=== PATIENT | female | born 1945 | race Caucasian/White ===

== ENCOUNTER 2018-09-25 14:35 | Outpatient (CLI) | payer MEDICARE, OTHER ==
[2018-09-25 18:13] LABS: BASOPHILS # (AUTO) 0.1 10^3/uL (0.0-0.1); BASOPHILS % (AUTO) 1.2 %; EOSINOPHILS # (AUTO) 0.1 10^3/uL (0.0-0.7); EOSINOPHILS % (AUTO) 2.3 %; HGB - HEMOGLOBIN 13.7 g/dL (12.0-16.0); LYMPHOCYTES # (AUTO) 1.7 10^3/uL (1.5-3.5); LYMPHOCYTES % (AUTO) 31.3 %; MEAN CORPUSCULAR HEMOGLOBIN 31.2 pg (27.0-31.0); MEAN CORPUSCULAR HGB CONC 32.8 g/dL (32.0-36.0); MEAN CORPUSCULAR VOLUME 95.3 fL (81.0-99.0); MEAN PLATELET VOLUME 9.8 fL (7.9-10.8); MONOCYTES # (AUTO) 0.6 10^3/uL (0.0-1.0); MONOCYTES % (AUTO) 11.2 %; PLT - PLATELET COUNT 223 10^3/uL (130-450); WHITE BLOOD COUNT 5.5 x10^3/uL (4.8-10.8)
== END 2018-09-25 14:36 | disposition home or self-care (01) ==
LOC: LAB.F 14:35
PROVIDERS: ATTEND Internal Medicine
DX: L53.8 Other specified erythematous conditions (principal); M06.4 Inflammatory polyarthropathy
CPT/HCPCS: 36415; 81599; 85025; 86360

== ENCOUNTER 2020-04-30 22:11 | Observation (INO) | payer MEDICARE, OTHER ==
--- NOTE | 2020-04-30 22:35 | ED Physician Documentation ---
PD HPI CHEST PAIN - Stated complaint Stated Complaint: RAPID HR - Chief complaint Chief Complaint: Cardiac - History obtained from History obtained from: Patient - History of Present Illness Timing - onset: How many hours ago (3), Today Timing - onset during: Rest (sitting down to eat dinner.) Timing - duration: Hours (3) Timing - details: Abrupt onset, Still present Quality: Pressure, Tightness. No: Sharp Location: Substernal Improved by: No: Rest Worsened by: Exertion (felt lightheaded with standing/walking) Associated symptoms: Shortness of air, Feeling faint / dizzy, General Weakness, Palpitations (felt heart rate going very fast). No: Nausea, Vomiting Similar symptoms before: No diagnosis (She has had similar symptoms perhaps 3-4 times in the past year lasting only 20 to 30 minutes and then would improve. She did not seek evaluation for these episodes. She is able to walk and exercise regularly without any exertional chest pain or dyspnea.) Review of Systems Constitutional: denies: Fever, Chills, Fatigue, Weight Loss Nose: denies: Rhinorrhea / runny nose, Congestion Throat: denies: Sore throat Cardiac: reports: Palpitations (as per HPI). denies: Pedal edema, Calf pain Respiratory: denies: Cough GI: denies: Abdominal Pain, Nausea, Vomiting, Diarrhea Skin: denies: Rash, Lesions Neurologic: reports: Generalized weakness. denies: Focal weakness, Numbness, Near syncope, Syncope, Altered mental status, Headache Endocrine: denies: Weight loss, Easy bruising / bleeding PD PAST MEDICAL HISTORY - Past Medical History Past Medical History: Yes Cardiovascular: Atrial flutter Respiratory: None - Past Surgical History Past Surgical History: No - Allergies Allergies/Adverse Reactions: Allergies Allergy/AdvReac Type Severity Reaction Status Date / Time Opioids - Morphine Analogues AdvReac Nausea Verified 04/30/20 22:26 Opioids-Meperidine and AdvReac Nausea Verified 04/30/20 22:26 Related [Opioids-Meperidine & Related] Opioids-Methadone and Related AdvReac Nausea Verified 04/30/20 22:26 [Opioids-Methadone & Related] - Social History Does the pt smoke?: No Smoking Status: Never smoker Does the pt drink ETOH?: No Does the pt have substance abuse?: No - Immunizations Immunizations are current?: Yes - POLST Patient has POLST: No PD ED PE NORMAL - Vitals Vital signs reviewed: Yes (rapid heart rate) - General General: Alert and oriented X 3, No acute distress, Well developed/nourished - HEENT HEENT: Moist mucous membranes, Pharynx benign - Neck Neck: Supple, no meningeal sign, No adenopathy - Cardiac Cardiac: No murmur. No: RRR (irregular and rate about 150) - Respiratory Respiratory: Clear bilaterally - Abdomen Abdomen: Soft, Non tender - Back Back: No CVA TTP - Derm Derm: Normal color, Warm and dry - Extremities Extremities: No tenderness to palpate, Normal ROM s pain, No edema, No calf tenderness / cord - Neuro Neuro: Alert and oriented X 3, No motor deficit, Normal speech Results - Vitals Vitals: Vital Signs - 24 hr 04/30/20 04/30/20 04/30/20 22:26 22:28 22:58 Temperature 36.8 C Heart Rate 148 H 138 H 140 H Respiratory 20 20 20 Rate Blood Pressure 170/90 H 170/90 H 165/107 H O2 Saturation 100 100 100 04/30/20 04/30/20 04/30/20 23:02 23:28 23:39 Temperature Heart Rate 102 H 85 95 Respiratory 18 18 18 Rate Blood Pressure 167/107 H 127/64 108/63 O2 Saturation 100 99 98 05/01/20 05/01/20 05/01/20 00:05 00:29 00:30 Temperature Heart Rate 85 131 H 120 H Respiratory 18 18 18 Rate Blood Pressure 118/61 118/61 131/79 H O2 Saturation 98 98 98 05/01/20 00:58 Temperature Heart Rate 96 Respiratory 18 Rate Blood Pressure 131/79 H O2 Saturation 98 Oxygen O2 Source Room air - EKG (time done) 22:23 Rate: Rate (enter#) (155) Rhythm: Atrial fibrillation [address]: Normal QRS: Normal Ischemia: ST depression (mild laterally; consider rate related ischemia). No: ST elevation c/w ischemia, T wave inversion - Labs Labs: Laboratory Tests 04/30/20 04/30/20 04/30/20 22:35 22:35 22:35 WBC 7.0 RBC 4.69 Hgb 14.3 Hct 44.0 MCV 93.8 MCH 30.5 MCHC 32.5 RDW 13.2 Plt Count 217 MPV 10.4 Neut # (Auto) 3.4 Lymph # (Auto) 2.5 [place] # (Auto) 0.8 Eos # (Auto) 0.2 Baso # (Auto) 0.1 Absolute Nucleated RBC 0.00 Nucleated RBC % 0.0 Sodium 139 Potassium 3.3 L Chloride 104 Carbon Dioxide 25 Anion Gap 10.0 BUN 18 Creatinine 0.7 Estimated GFR (MDRD) 81 L Glucose 132 H Calcium 9.7 Magnesium 2.2 Total Bilirubin 0.5 AST 28 ALT 26 Alkaline Phosphatase 65 B-Natriuretic Peptide 84 Total Protein 7.5 Albumin 4.5 Globulin 3.0 Albumin/Globulin Ratio 1.5 Lipase 41 TSH 04/30/20 22:35 WBC RBC Hgb Hct MCV MCH MCHC RDW Plt Count MPV Neut # (Auto) Lymph # (Auto) [place] # (Auto) Eos # (Auto) Baso # (Auto) Absolute Nucleated RBC Nucleated RBC % Sodium Potassium Chloride Carbon Dioxide Anion Gap BUN Creatinine Estimated GFR (MDRD) Glucose Calcium Magnesium Total Bilirubin AST ALT Alkaline Phosphatase B-Natriuretic Peptide Total Protein Albumin Globulin Albumin/Globulin Ratio Lipase TSH 1.93 - Rads (name of study) chest xray Radiology: Prelim report reviewed (no acute process), See rad report PD MEDICAL DECISION MAKING - ED course Complexity details: re-evaluated patient (Her rate improved down to 90-100 with diltiazem. However remained in fibrillation and started increasing back up to the 1 10-1 20 range. Repeat dose of diltiazem was given. I talked with the hospitalist who will see the patient in the ER.), considered differential (New diagnosis of new onset atrial fibrillation with fast heart rate. Will check electrolytes and thyroid and kidney function. We will approach with rate control initially.), d/w patient Departure - Departure Disposition: ED Place in Observation Clinical Impression: Atrial fibrillation with rapid ventricular response Condition: Stable Record reviewed to determine appropriate education?: Yes
[2020-04-30] MEDS ORDERED: DILTIAZEM 50 MG/10 ML VIAL IVP STA (22:53)
[2020-04-30] MEDS ORDERED: SODIUM CHLORIDE 0.9% 1,000 ML IV STA (22:53)
[2020-04-30 23:00] LABS: BASOPHILS # (AUTO) 0.1 10^3/uL (0.0-0.1); EOSINOPHILS # (AUTO) 0.2 10^3/uL (0.0-0.7); EOSINOPHILS % (AUTO) 2.7 %; HGB - HEMOGLOBIN 14.3 g/dL (12.0-16.0); LYMPHOCYTES # (AUTO) 2.5 10^3/uL (1.5-3.5); LYMPHOCYTES % (AUTO) 35.3 %; MEAN CORPUSCULAR HEMOGLOBIN 30.5 pg (27.0-31.0); MEAN CORPUSCULAR HGB CONC 32.5 g/dL (32.0-36.0); MEAN CORPUSCULAR VOLUME 93.8 fL (81.0-99.0); MEAN PLATELET VOLUME 10.4 fL (7.9-10.8); MONOCYTES # (AUTO) 0.8 10^3/uL (0.0-1.0); MONOCYTES % (AUTO) 11.4 %; NEUTROPHILS # (AUTO) 3.4 10^3/uL (1.5-6.6); NEUTROPHILS % (AUTO) 49.3 %; PLT - PLATELET COUNT 217 10^3/uL (130-450); RED BLOOD COUNT 4.69 10^6/uL (4.20-5.40); RED CELL DISTRIBUTION WIDTH 13.2 % (12.0-15.0)
[2020-04-30 23:11] LABS: ALBUMIN 4.5 g/dL (3.2-5.5); ALBUMIN/GLOBULIN RATIO 1.5 (1.0-2.2); BILIRUBIN,TOTAL 0.5 mg/dL (0.2-1.0); CALCIUM 9.7 mg/dL (8.5-10.3); CREATININE 0.7 mg/dL (0.4-1.0); MAGNESIUM 2.2 mg/dL (1.7-2.8); TOTAL PROTEIN 7.5 g/dL (6.7-8.2)
[2020-04-30] MEDS ORDERED: POTASSIUM CHLORIDE 10 MEQ CAPSULE PO STA (23:37)
[2020-04-30] MEDS ORDERED: POTASSIUM CHLOR 10 MEQ/100 ML 10 MEQ/100 ML BAG IV ONE (23:37)
[2020-05-01] MEDS ORDERED: DILTIAZEM 50 MG/10 ML VIAL IVP ONE (00:24)
[2020-05-01] MEDS ORDERED: ACETAMINOPHEN 325 MG TABLET PO PRN (01:03)
[2020-05-01] MEDS ORDERED: ONDANSETRON 4 MG/2 ML VIAL IVP PRN (01:03)
[2020-05-01] MEDS ORDERED: SODIUM CHLORIDE FLUSH 0.9% 10 ML SYRINGE IVP PRN (01:03)
--- NOTE | 2020-05-01 01:16 | HISTORY & PHYSICAL EXAMINATION ---
Chief Complaint - Chief Complaint Chief Complaint: Irregular heart rate History of Present Illness - Admitted From Admitted From:: Home - History Obtained From Records Reviewed: Yes History obtained from: Patient, Spouse, ER Physician, EMR - History of Present Illness HPI Comment/Other: This is a very pleasant 74-year-old female with no significant past medical history who presents today complaining of an irregular heart rate. She states her symptoms began today around 7 PM after she finished eating dinner while she was watching TV. She states she has had similar symptoms in the past which normally lasts 30 to 45 minutes. She normally takes a cold shower and performs vagal maneuvers and this resolves her irregular heart rate. Despite these interventions today, her symptoms persisted and so she sought medical attention. She reports she felt some upper abdominal pain during the episode associated with nausea but no vomiting. She felt like she needed to belch during this episode. She currently reports no chest pain and she denies any dyspnea. Reports no fevers, chills, recent sick contacts. She believes she has been told she has atrial fibrillation in the past but she currently is not take any medications. She reports no prior history of heart disease or heart failure. She currently takes no medications. She had been offered a beta-alba in the past but she did not want to take this due to the potential side effects. In the emergency department, she was found to be in atrial fibrillation with heart rates in the 140s. He was given diltiazem 15 mg IV once with improvement in her heart rates in the 100s to 110s. She then became tachycardic again with heart rate in the 130s and she was given another 10 mg of IV diltiazem. Her labs are remarkable to for potassium of 3.3. Chest x-ray is unremarkable. EKG showed atrial fibrillation with heart rates in the 140s and diffuse ST depressions likely related to the heart rate. Given these findings, medicine was consulted for admission. I did discuss goals of care with the patient and she would like to be a full code. 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 Her 2 brothers and mother both have diabetes. Living arrangement: At home Living Situation: With spouse/s.o. Social History Notes: She lives at home with her , Jerry. 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 She smoked in her teens but has not smoked since then. She denies any alcohol use. - POLST Patient has POLST: No Meds/Allgy - Allergies Allergies/Adverse Reactions: Allergies Allergy/AdvReac Type Severity Reaction Status Date / Time Opioids - Morphine Analogues AdvReac Nausea Verified 04/30/20 22:26 Opioids-Meperidine and AdvReac Nausea Verified 04/30/20 22:26 Related [Opioids-Meperidine & Related] Opioids-Methadone and Related AdvReac Nausea Verified 04/30/20 22:26 [Opioids-Methadone & Related] Review of Systems - Constitutional Constitutional: denies: Fatigue, Fever, Chills, Weakness, Poor appetite - Eyes Eyes: denies: Blurred vision - Ears, Nose & Throat Ears, Nose & Throat: denies: Nasal discharge, Postnasal drainage, Sore throat - Cardiovascular Cariovascular: reports: Irregular heart rate, Palpitations. denies: Chest pain, Edema, Lightheadedness, Exertional dyspnea, Decr. exercise tolerance - Respiratory Respiratory: denies: Cough, SOB at rest, SOB with exertion - Gastrointestinal Gastrointestinal: reports: Nausea, Reflux/heartburn. denies: Abdominal pain, Constipation, Diarrhea, Vomiting - Genitourinary Genitourinary: denies: Dysuria, Frequency, Urgency, Hematuria - Musculoskeletal Musculoskeletal: denies: Muscle pain - Integumentary Integumentary: denies: Rash - Neurological Neurological: denies: General weakness, Focal weakness, Headache, Dizziness, Numbness - Psychiatric Psychiatric: reports: Anxiety - Hematologic/Lymphatic Hematologic/Lymphatic: reports: Bruising - All Other Systems All Other Systems: reports: Reviewed and negative Prior Level of Functionality: She is independent with her ADLs. Exam - Vital Signs Reviewed Vital Signs: Yes Vital Signs: Vital Signs x48h Temp Pulse Resp BP Pulse Ox 05/01/20 00:58 96 18 131/79 H 98 05/01/20 00:30 120 H 18 131/79 H 98 05/01/20 00:29 131 H 18 118/61 98 05/01/20 00:05 85 18 118/61 98 04/30/20 23:39 95 18 108/63 98 04/30/20 23:28 85 18 127/64 99 04/30/20 23:02 102 H 18 167/107 H 100 04/30/20 22:58 140 H 20 165/107 H 100 04/30/20 22:28 138 H 20 170/90 H 100 04/30/20 22:26 36.8 C 148 H 20 170/90 H 100 - Physical Exam General Appearance: positive: Alert Eyes Bilateral: positive: Normal inspection, Conjunctivae nml ENT: positive: ENT inspection nml Neck: positive: Nml inspection Respiratory: positive: No respiratory distress. negative: Wheezes, Rales Cardiovascular: positive: No murmur, Irregularly irregular, Tachycardia. negative: Bradycardia, Systolic murmur, Diastolic murmur Abdomen: positive: Non-tender, Nml bowel sounds, No distention. negative: Tenderness, Guarding, Rebound Skin: positive: No rash, Warm, Dry Extremities: positive: Full ROM, No pedal edema. negative: Calf tenderness, Dominga's sign/cords Neurologic/Psychiatric: positive: Oriented x3, Motor nml. negative: Disoriented to person, Disoriented to place, Disoriented to time Conclusion/Plan - Problem List (1) Atrial fibrillation with rapid ventricular response Conclusion/Plan: Suspect this is the likely cause of her ongoing palpitations over the past few years. Her heart rate has now improved to the low 100s after 2 pushes of diltiazem IV. She has fluctuated up to the 130s despite this and so we will observe her overnight. TSH is within normal limits. Chest x-ray is unremarkable. We will start her on oral Cardizem 30 mg every 6 hours. We will use diltiazem IV as needed. Monitor on telemetry. Check echocardiogram. Trend troponin. We discussed initiating anti-coagulation given her [id number] score is 3. I informed her that the daily risk of stroke is low but the concern with atrial fibrillation is the long-term risk of stroke. She would like to hold off on initiating Eliquis at this time until she does more research. She would like a prescription for when she is discharged as she may start taking it once she completes her research. (2) Hypokalemia Conclusion/Plan: Will replace orally. - Lab Results Lab results reviewed: Yes Fish Bones: 04/30/20 22:35 04/30/20 22:35 - Diagnostic Imaging Results Diagnostic Imaging Results: positive: Final report reviewed - EKG Results EKG Interpreted Independently: Yes EKG Comparison: Changed from prior EKG EKG Findings: EKG shows atrial fibrillation with a heart rate in the 140s. Diffuse ST depres sions likely related to her tachycardia. This is changed compared to prior EKG which was a sinus rhythm. Core Measures - Anticipated LOS I expect patient to be DC'd or transferred within 96 hours.: Yes - Issues Hospital Issues and Management Plan: 74-year-old female presents with atrial fibrillation. She remains tachycardic in the ER and so we will observe her overnight. Check echocardiogram and start her on oral Cardizem and continue with IV rate control as needed. - DVT/VTE - Prophylaxis VTE/DVT Device ordered at admit?: Yes VTE/DVT Prophylaxis med ordered at admit?: Yes
[2020-05-01] MEDS ORDERED: diltiaZEM 30 MG TABLET PO SCH ×2 (02:00→08:00)
[2020-05-01 05:48] LABS: BASOPHILS # (AUTO) 0.1 10^3/uL (0.0-0.1); BASOPHILS % (AUTO) 1.2 %; EOSINOPHILS # (AUTO) 0.1 10^3/uL (0.0-0.7); EOSINOPHILS % (AUTO) 2.3 %; HGB - HEMOGLOBIN 12.3 g/dL (12.0-16.0); LYMPHOCYTES # (AUTO) 1.4 10^3/uL (1.5-3.5); LYMPHOCYTES % (AUTO) 32.8 %; MEAN CORPUSCULAR HEMOGLOBIN 30.1 pg (27.0-31.0); MEAN CORPUSCULAR VOLUME 93.9 fL (81.0-99.0); MEAN PLATELET VOLUME 10.3 fL (7.9-10.8); MONOCYTES # (AUTO) 0.6 10^3/uL (0.0-1.0); MONOCYTES % (AUTO) 13.4 %; NEUTROPHILS # (AUTO) 2.2 10^3/uL (1.5-6.6); NEUTROPHILS % (AUTO) 50.1 %; PLT - PLATELET COUNT 188 10^3/uL (130-450); RED BLOOD COUNT 4.09 10^6/uL (4.20-5.40); RED CELL DISTRIBUTION WIDTH 13.2 % (12.0-15.0); WHITE BLOOD COUNT 4.3 x10^3/uL (4.8-10.8)
[2020-05-01 06:03] LABS: CALCIUM 9.4 mg/dL (8.5-10.3); CREATININE 0.5 mg/dL (0.4-1.0); MAGNESIUM 2.3 mg/dL (1.7-2.8)
--- NOTE | 2020-05-01 08:09 | Discharge Plan ---
Discharge Plan Problem Reviewed?: Yes Disposition: Home, Self Care Condition: Stable Prescriptions: diltiaZEM CD [Cardizem Cd] 120 mg PO DAILY PRN #15 capsule PRN Reason: Per Physician Order Apixaban [Eliquis] 5 mg PO BID #60 tablet Diet: Cardiac Activity Restrictions: Activity as Tolerated Shower Restrictions: No Driving Restrictions: No Instruction Topics: Stroke Prevent Live W Atrial Fib Health Concerns: You were admitted with Atrial fibrillation that had a very rapid heart rate. You received IV medicines for this which slowed it and then converted Afib back to a normal heart rhythm. An Echo was done that showed normal left ventricular function. Your risk of stroke is higher because of having episodes of Afib, therefore taking a daily aspirin or the anticoagulant medication daily is recommended. You need a stress test, to evaluate for coronary blockages as being a possible cause of this abnormal heart rhythm and abnormal troponin labs, therefore you should have no strenuous activity until you are cleared after having a stress test. There are new prescriptions for you to take called Cardizem (for heart rate control), and Eliquis (the blood thinner), these have been sent to your [facility] pharmacy in [place]. You should have further management and discussion about your options for Afib t reatment with a [facility]. See your PCP soon to get referral to a [facility]. Your PCP can order the stress test, however. Resume any other medicines you took before this hospitalization. Plan of Treatment: As above. Care Goals: Improvement in symptoms and stabilization are the goals. Assessment: Patient understands and is agreeable with the plan. Additional Instructions or Follow Up instructions: If you have new or worsening symptoms, call your PCP or [facility] for advice, or come to the ER. No Smoking: If you smoke, Please STOP! Call for help. Follow-up with: Shaggy Galicia MD [Primary Care Provider] -
--- NOTE | 2020-05-01 08:48 | XRAY Report ---
PROCEDURE: Chest 1 View X-Ray INDICATIONS: rapid heart rate TECHNIQUE: One view of the chest was acquired. COMPARISON: Chest xray 07/02/16 FINDINGS: Surgical changes and devices: None. Lungs and pleura: No pleural effusions or pneumothorax. Lungs are clear. Mediastinum: Mediastinal contours appear normal. Heart size is normal. Bones and chest wall: No suspicious bony lesions. Overlying soft tissues appear unremarkable. IMPRESSION: 1. No acute pulmonary process. Reviewed by: Miley Cardenas MD on 05/01/2020 8:47 AM PDT Approved by: Miley Cardenas MD on 05/01/2020 8:47 AM PDT Station ID: [id number]
[2020-05-01] MEDS ORDERED: ENOXAPARIN 40 MG/0.4 ML SYRINGE SUBQ SCH (09:00)
[2020-05-01] MEDS ORDERED: SODIUM CHLORIDE FLUSH 0.9% 10 ML SYRINGE IVP SCH (09:00)
[2020-05-01 10:26] VITALS: BP 153/54
--- NOTE | 2020-05-01 12:18 | DISCHARGE SUMMARY ---
Discharge Summary Admit Date: 05/01/20 Discharge Date: 05/01/20 Discharging Provider: Dr Yolanda Lowe Primary Care Provider: Dr Shaggy Galicia Code Status: Attempt Resuscitation Condition at Discharge: Stable Discharge Disposition: 01 Home, Self Care - [facility] History of Present Illness: From the admission H&P of Dr Brenton Georgef: This is a very pleasant 74-year-old female with no significant past medical history who presents today complaining of an irregular heart rate. She states her symptoms began today around 7 PM after she finished eating dinner while she was watching TV. She states she has had similar symptoms in the past which normally lasts 30 to 45 minutes. She normally takes a cold shower and performs vagal maneuvers and this resolves her irregular heart rate. Despite these interventions today, her symptoms persisted and so she sought medical attention. She reports she felt some upper abdominal pain during the episode associated with nausea but no vomiting. She felt like she needed to belch during this episode. She currently reports no chest pain and she denies any dyspnea. Reports no fevers, chills, recent sick contacts. She believes she has been told she has atrial fibrillation in the past but she currently is not take any medications. She reports no prior history of heart disease or heart failure. She currently takes no medications. She had been offered a beta-alba in the past but she did not want to take this due to the potential side effects. In the emergency department, she was found to be in atrial fibrillation with heart rates in the 140s. He was given diltiazem 15 mg IV once with improvement in her heart rates in the 100s to 110s. She then became tachycardic again with heart rate in the 130s and she was given another 10 mg of IV diltiazem. Her labs are remarkable to for potassium of 3.3. Chest x-ray is unremarkable. EKG showed atrial fibrillation with heart rates in the 140s and diffuse ST depressions likely related to the heart rate. Given these findings, medicine was consulted for admission. I did discuss goals of care with the patient and she would like to be a full code. - HOSPITAL COURSE Hospital Course: 1) Paroxysmal Afib. She was kept on telemetry and started on Cardizem 30 mg p.o. every 6 hours. She converted to normal sinus rhythm at rates of 60-70. An EKG was done that confirmed this. An Echo was done that showed normal chamber sizes and normal LV and RV contractility at rest. TSH was normal. Troponins were not normal: 5>> 24>> 28. They may have been elevated from demand ischemia related to the tachycardia. She was told that she needs work-up for coronary artery disease (which could be the cause of A. fib), this should be done as an outpatient. She was advised to have no strenuous activity (like hiking) until cleared after the stress test. Her chads vasc score was calculated at 3, and she was advised to start anticoagulation, but she wanted to think about this. An Eliquis 5 mg twice daily prescription was sent to her pharmacy. At the minimum, she was advised to take 1 baby aspirin with food, daily, lifelong. She said she would discuss this with her PCP and with a referral to a new [employer], after researching her options more. She was also given a prescription for Cardizem CD 120 mg a day to take 1 tablet prn when she gets recurrence of her palpitations. 2) Hypokalemia. This was corrected with oral replacement. - ALLERGIES Allergies/Adverse Reactions: Allergies Allergy/AdvReac Type Severity Reaction Status Date / Time gluten AdvReac Rash Verified 05/01/20 02:40 lactase [From [employer]] AdvReac Rash Verified 05/01/20 02:43 Opioids - Morphine Analogues AdvReac Nausea Verified 04/30/20 22:26 Opioids-Meperidine and AdvReac Nausea Verified 04/30/20 22:26 Related [Opioids-Meperidine & Related] Opioids-Methadone and Related AdvReac Nausea Verified 04/30/20 22:26 [Opioids-Methadone & Related] Cane sugar AdvReac Rash Uncoded 05/01/20 02:44 - MEDICATIONS Home Medications: Ambulatory Orders Medication Instructions Recorded Confirmed Apixaban [Eliquis] 5 mg PO BID #60 tablet 05/01/20 diltiaZEM CD [Cardizem Cd] 120 mg PO DAILY PRN #15 capsule 05/01/20 - PHYSICAL EXAM AT DISCHARGE General Appearance: positive: No acute distress, Alert Eyes Bilateral: positive: Normal inspection, EOMI ENT: positive: ENT inspection nml, No signs of dehydration Neck: positive: Nml inspection, No JVD Respiratory: positive: No respiratory distress Cardiovascular: positive: Regular rate & rhythm, No murmur Abdomen: positive: Non-tender, No distention Skin: positive: Color nml Extremities: positive: Non-tender, No pedal edema Neurologic/Psychiatric: positive: Oriented x3, Other (Non-focal) - LABS Result Diagrams: 05/01/20 05:29 05/01/20 05:29 - DIAGNOSTIC IMAGING Diagnostic Imaging Results: Final report reviewed - FOLLOW UP Follow Up: See PCP soon, for further management and hospital follow-up. - TIME SPENT Time Spent in Discharge (Minutes): 45
== END 2020-05-01 12:30 | disposition home or self-care (01) ==
LOC: ED 22:11 → MS2 05-01 01:03
PROVIDERS: ADMIT Internal Medicine; ATTEND Internal Medicine
DX: I48.0 Paroxysmal atrial fibrillation (principal); E87.6 Hypokalemia; R79.89 Other specified abnormal findings of blood chemistry; Z87.891 Personal history of nicotine dependence
CPT/HCPCS: 36415; 71045; 80048; 80053; 83690; 83735; 83880; 84100; 84443; 84484; 85025; 93005; 93306; 96361; 96365; 96372; 96375; 96376; 99284; 99285; A9270; G0378; J1650

== ENCOUNTER 2020-10-31 21:41 | Emergency (ER) | payer MEDICARE, OTHER ==
--- NOTE | 2020-10-31 21:48 | ED Physician Documentation ---
PD HPI CHEST PAIN - Stated complaint Stated Complaint: IRREGULAR HR - History obtained from History obtained from: Patient - History of Present Illness Timing - onset: How many hours ago (2) Timing - onset during: Rest (watching TV, felt onset of fast heart rate. Took BP and pulse and HR was 150s. 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 when needed for an episode. She took it at home and waited an hour without any improvement. Came here for evaluation.) Quality: Pressure. No: Tightness, Aching Improved by: Other medication (PO Diltiazem). No: Rest Worsened by: No: Inspiration Associated symptoms: Palpitations. No: Shortness of air, Nausea, Feeling faint / dizzy Similar symptoms before: Diagnosis (atrial fib episode about 6 months ago. No other known episodes.) Recently seen: Not recently seen Review of Systems Constitutional: denies: Fever, Chills Nose: denies: Rhinorrhea / runny nose, Congestion Throat: denies: Sore throat Cardiac: reports: Palpitations. 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11.) Psych: None Musculoskeletal: Osteoarthritis, Osteoporosis Derm: None - Past Surgical History Past Surgical History: No General: Colonoscopy HEENT: Cataracts, Tonsil/Adenoidectomy - Present Medications Home Medications: Ambulatory Orders Medication Instructions Recorded Confirmed diltiaZEM CD [Cardizem Cd] 120 mg PO DAILY PRN #15 capsule 05/01/20 Aspirin [Aspirin EC] 81 mg PO DAILY 10/31/20 10/31/20 Rivaroxaban [Xarelto] 15 mg PO DAILY 10/31/20 10/31/20 Potassium Chloride 10 meq PO DAILY #15 tablet.er 11/01/20 - Allergies Allergies/Adverse Reactions: Allergies Allergy/AdvReac Type Severity Reaction Status Date / Time gluten AdvReac Rash Verified 10/31/20 21:56 lactase [From Dairy Aid] AdvReac Rash Verified 10/31/20 21:56 Opioids - Morphine Analogues AdvReac Nausea Verified 10/31/20 21:56 Opioids-Meperidine and AdvReac Nausea Verified 10/31/20 21:56 Related [Opioids-Meperidine & Related] Opioids-Methadone and Related AdvReac Nausea Verified 10/31/20 21:56 [Opioids-Methadone & Related] Cane sugar AdvReac Rash Uncoded 10/31/20 21:56 - Social History Does the pt smoke?: No Smoking Status: Never smoker Does the pt drink ETOH?: No Does the pt have substance abuse?: No - Immunizations Immunizations are current?: Yes - POLST Patient has POLST: No PD ED PE NORMAL - Vitals Vital signs reviewed: Yes - General General: Alert and oriented X 3, Well developed/nourished - HEENT HEENT: Pharynx benign - Neck Neck: Supple, no meningeal sign, No adenopathy - Cardiac Cardiac: No murmur. No: RRR (irregular and fast rate about 140) - Respiratory Respiratory: Clear bilaterally - Abdomen Abdomen: Soft, Non tender - Derm Derm: Normal color, Warm and dry - Extremities Extremities: No deformity, No tenderness to palpate, No edema, No calf tenderness / cord - Neuro Neuro: Alert and oriented X 3, No motor deficit, Normal speech Results - Vitals Vitals: Vital Signs - 24 hr 10/31/20 10/31/20 10/31/20 21:45 21:57 22:23 Temperature 36.4 C L 36.4 C L 36.4 C L Heart Rate 68 128 H 123 H Respiratory 20 20 19 Rate Blood Pressure 149/97 H 149/97 H 124/85 H O2 Saturation 99 99 100 10/31/20 10/31/20 10/31/20 22:28 22:37 22:39 Temperature 36.4 C L 36.4 C L 36.4 C L Heart Rate 103 H 109 H 96 Respiratory 15 18 18 Rate Blood Pressure 104/93 H 125/86 H 115/88 H O2 Saturation 99 98 99 10/31/20 10/31/20 10/31/20 22:50 23:05 23:11 Temperature 36.4 C L 36.4 C L 36.4 C L Heart Rate 95 110 H 101 H Respiratory 18 16 16 Rate Blood Pressure 107/70 110/72 97/56 L O2 Saturation 100 100 98 10/31/20 10/31/20 10/31/20 23:15 23:20 23:30 Temperature 36.4 C L 36.5 C 36.5 C Heart Rate 93 90 89 Respiratory 16 16 16 Rate Blood Pressure 109/53 L 111/54 L 122/55 L O2 Saturation 100 98 100 10/31/20 10/31/20 11/01/20 23:42 23:54 00:35 Temperature 36.5 C 36.6 C 36.5 C Heart Rate 95 83 102 H Respiratory 16 18 18 Rate Blood Pressure 110/53 L 107/53 L 135/75 H O2 Saturation 100 98 99 11/01/20 11/01/20 11/01/20 00:45 00:48 00:51 Temperature Heart Rate 108 H 82 80 Respiratory 18 19 18 Rate Blood Pressure 122/81 H 111/61 108/56 L O2 Saturation 110 H 99 99 11/01/20 11/01/20 11/01/20 00:54 00:57 00:59 Temperature 36.5 C 36.5 C Heart Rate 74 82 120 H Respiratory 18 18 20 Rate Blood Pressure 99/58 L 109/58 L O2 Saturation 100 100 11/01/20 11/01/20 01:09 01:36 Temperature 36.5 C 36.5 C Heart Rate 74 78 Respiratory 18 18 Rate Blood Pressure 103/61 112/60 O2 Saturation 100 100 Oxygen O2 Source Room air - EKG (time done) 21:52 Rate: Rate (enter#) (157) Rhythm: Atrial fibrillation [place]: Normal QRS: Normal Ischemia: Normal ST segments, ST depression (mild diffusely c/w rate related ischemia). No: ST elevation c/w ischemia 01:06 Rhythm: NSR [place]: Normal Intervals: Normal [place] QRS: Normal Ischemia: Normal ST segments. No: ST elevation c/w ischemia, ST depression - Labs Labs: Laboratory Tests 10/31/20 10/31/20 10/31/20 22:00 22:00 22:00 WBC 6.2 RBC 4.66 Hgb 14.6 Hct 44.4 MCV 95.3 MCH 31.3 H MCHC 32.9 RDW 13.4 Plt Count 221 MPV 10.2 Neut # (Auto) 3.2 Lymph # (Auto) 2.1 [place] # (Auto) 0.6 Eos # (Auto) 0.1 Baso # (Auto) 0.1 Absolute Nucleated RBC 0.00 Nucleated RBC % 0.0 Sodium 139 Potassium 3.2 L Chloride 103 Carbon Dioxide 25 Anion Gap 11.0 BUN 19 Creatinine 0.6 Estimated GFR (MDRD) 97 Glucose 131 H Calcium 9.8 Magnesium 2.4 Total Bilirubin 0.6 AST 26 ALT 23 Alkaline Phosphatase 66 B-Natriuretic Peptide 90 Total Protein 7.8 Albumin 4.5 Globulin 3.3 Albumin/Globulin Ratio 1.4 Procedures - Procedural sedation Sedation prep: Informed consent, Time out completed, Last meal (several hours ago), PE performed, ASA 2 - mild disease Sedation medications: propofol Patient status during sedation: Responds to tactile, Recovered uneventfully. 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 Still remains in fibrillation. Heart rate was starting to increase again a little bit up to 90-100. We discussed rhythm control with either medications like procainamide or attempting cardioversion. Discussed pros and cons of each), considered differential (She is having atrial fibrillation with a fast heart rate. Prior episode was 6 months ago. Has not felt any episodes in the interim.), d/w patient, d/w family () ED course: She and her opted for cardioversion and this was done successfully with good recovery from sedation. She is in sinus rhythm and feels well. Vitals remained stable. Departure - Departure Disposition: 01 Home, Self Care Clinical Impression: Paroxysmal atrial fibrillation with RVR, Hypokalemia Condition: Stable Record reviewed to determine appropriate education?: Yes Instructions: ED Afib, ED Cardioversion Electrical Follow-Up: Shaggy Galicia MD [Primary Care Provider] - Prescriptions: Potassium Chloride 10 meq PO DAILY #15 tablet.er Comments: Well-hydrated. Add a potassium supplement daily for the next couple of weeks. Continue your aspirin daily. Contact your outbound sales professional on Tuesday to see if any other change in plans regarding prophylactic treatment or just continuing with the "pill in the pocket" approach at this time. Discharge Date/Time: 11/01/20 01:36
[2020-10-31] MEDS ORDERED: diltiaZEM INJ 5 MG/ML VIAL IVP STA ×2 (22:11→22:44)
[2020-10-31 22:16] LABS: BASOPHILS # (AUTO) 0.1 10^3/uL (0.0-0.1); BASOPHILS % (AUTO) 1.1 %; EOSINOPHILS # (AUTO) 0.1 10^3/uL (0.0-0.7); EOSINOPHILS % (AUTO) 1.9 %; HGB - HEMOGLOBIN 14.6 g/dL (12.0-16.0); LYMPHOCYTES # (AUTO) 2.1 10^3/uL (1.5-3.5); LYMPHOCYTES % (AUTO) 34.2 %; MEAN CORPUSCULAR HEMOGLOBIN 31.3 pg (27.0-31.0); MEAN CORPUSCULAR HGB CONC 32.9 g/dL (32.0-36.0); MEAN CORPUSCULAR VOLUME 95.3 fL (81.0-99.0); MEAN PLATELET VOLUME 10.2 fL (7.9-10.8); MONOCYTES # (AUTO) 0.6 10^3/uL (0.0-1.0); MONOCYTES % (AUTO) 10.3 %; NEUTROPHILS # (AUTO) 3.2 10^3/uL (1.5-6.6); PLT - PLATELET COUNT 221 10^3/uL (130-450); RED BLOOD COUNT 4.66 10^6/uL (4.20-5.40); RED CELL DISTRIBUTION WIDTH 13.4 % (12.0-15.0); WHITE BLOOD COUNT 6.2 x10^3/uL (4.8-10.8)
[2020-10-31] MEDS ORDERED: SODIUM CHLORIDE 0.9% 1,000 ML IV STA (22:16)
[2020-10-31 22:29] LABS: ALBUMIN 4.5 g/dL (3.2-5.5); ALBUMIN/GLOBULIN RATIO 1.4 (1.0-2.2); BILIRUBIN,TOTAL 0.6 mg/dL (0.2-1.0); CALCIUM 9.8 mg/dL (8.5-10.3); CREATININE 0.6 mg/dL (0.4-1.0); MAGNESIUM 2.4 mg/dL (1.7-2.8); TOTAL PROTEIN 7.8 g/dL (6.7-8.2)
[2020-10-31] MEDS ORDERED: POTASSIUM CHLOR 10 MEQ/100 ML 10 MEQ/100 ML BAG IV ONE (22:34)
[2020-10-31] MEDS ORDERED: POTASSIUM CHLORIDE 20 MEQ TABLET PO STA (22:34)
[2020-11-01] MEDS ORDERED: PROPOFOL 200 MG/20 ML VIAL IVP STA (00:29)
[2020-11-01 01:37] VITALS: BP 112/60
== END 2020-11-01 01:36 | disposition home or self-care (01) ==
LOC: ED 21:41
DX: I48.0 Paroxysmal atrial fibrillation (principal); E87.6 Hypokalemia; Z79.82 Long term (current) use of aspirin
CPT/HCPCS: 36415; 80053; 83735; 83880; 85025; 92960; 93005; 96361; 96365; 96375; 96376; 99152; 99284; A9270; 94770

== ENCOUNTER 2021-05-15 10:17 | Outpatient (CLI) | payer MEDICARE, OTHER | END 2021-05-15 10:18 | disposition home or self-care (01) | LOC: LAB 10:17 | PROVIDERS: ATTEND Internal Medicine Cardiovascular Disease | DX: Z01.812 Encounter for preprocedural laboratory examination (principal); I48.0 Paroxysmal atrial fibrillation; Z20.822 Contact with and (suspected) exposure to COVID-19 ==

== ENCOUNTER 2022-03-24 13:53 | Emergency (ER) | payer MEDICARE, OTHER ==
[2022-03-24 15:24] LABS: BASOPHILS # (AUTO) 0.1 10^3/uL (0.0-0.1); BASOPHILS % (AUTO) 1.2 %; EOSINOPHILS # (AUTO) 0.1 10^3/uL (0.0-0.7); EOSINOPHILS % (AUTO) 1.3 %; HCT - HEMATOCRIT 40.5 % (37.0-47.0); HGB - HEMOGLOBIN 13.5 g/dL (12.0-16.0); LYMPHOCYTES # (AUTO) 1.6 10^3/uL (1.5-3.5); LYMPHOCYTES % (AUTO) 26.5 %; MEAN CORPUSCULAR HEMOGLOBIN 31.2 pg (27.0-31.0); MEAN CORPUSCULAR HGB CONC 33.3 g/dL (32.0-36.0); MEAN CORPUSCULAR VOLUME 93.5 fL (81.0-99.0); MEAN PLATELET VOLUME 9.7 fL (7.9-10.8); MONOCYTES # (AUTO) 0.5 10^3/uL (0.0-1.0); MONOCYTES % (AUTO) 8.8 %; NEUTROPHILS # (AUTO) 3.7 10^3/uL (1.5-6.6); PLT - PLATELET COUNT 215 10^3/uL (130-450); RED BLOOD COUNT 4.33 10^6/uL (4.20-5.40); RED CELL DISTRIBUTION WIDTH 13.1 % (12.0-15.0)
--- NOTE | 2022-03-24 15:28 | XRAY Report ---
PROCEDURE: Chest 1 View X-Ray INDICATIONS: Chest Pain TECHNIQUE: One view of the chest was acquired. COMPARISON: Chest x-ray 04/30/2020 FINDINGS: Surgical changes and devices: None. Lungs and pleura: No pleural effusions or pneumothorax. Lungs are clear. Mediastinum: Mediastinal contours appear normal. Heart size is enlarged. Bones and chest wall: No suspicious bony lesions. Overlying soft tissues appear unremarkable. IMPRESSION: No acute pulmonary process. Reviewed by: Miley Cardenas MD on 03/24/2022 3:27 PM PDT Approved by: Miley Cardenas MD on 03/24/2022 3:27 PM PDT Station ID: [id number]
[2022-03-24 15:39] LABS: ALBUMIN 4.2 g/dL (3.2-5.5); ALBUMIN/GLOBULIN RATIO 1.6 (1.0-2.2); BILIRUBIN,TOTAL 0.7 mg/dL (0.2-1.0); CALCIUM 9.9 mg/dL (8.5-10.3); CREATININE 0.6 mg/dL (0.4-1.0); POTASSIUM 3.7 mmol/L (3.5-5.0); TOTAL PROTEIN 6.9 g/dL (6.7-8.2)
[2022-03-24] MEDS ORDERED: FAMOTIDINE 20 MG TABLET PO STA (17:50)
--- NOTE | 2022-03-24 17:52 | ED Physician Documentation ---
PD HPI CHEST PAIN - Stated complaint Stated Complaint: CHEST DISCOMFORT & BURNING,BACK PX,FATIGUE - Chief complaint Chief Complaint: Cardiac - History obtained from History obtained from: Patient - Additional information Additional information: 76-year-old woman has had 11 days of epigastric pain, sometimes radiating to the back. It is definitely worse after eating. Does not seem to matter what she eats. Today a banana made it worse. She tried omeprazole which made her feel terrible and therefore only took 1 dose. No history of peptic ulcer disease or GERD. She does have a burning sensation there and a strange taste in her throat. She called her doctor's office who referred her here for a cardiac work-up. 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11.) Psych: None Musculoskeletal: Osteoarthritis, Osteoporosis Derm: None - Past Surgical History Past Surgical History: No General: Colonoscopy HEENT: Cataracts, Tonsil/Adenoidectomy - Present Medications Home Medications: Ambulatory Orders Medication Instructions Recorded Confirmed Aspirin [Aspirin EC] 81 mg PO DAILY 10/31/20 03/24/22 - Allergies Allergies/Adverse Reactions: Allergies Allergy/AdvReac Type Severity Reaction Status Date / Time gluten AdvReac Rash Verified 03/24/22 14:11 lactase [From Dairy Aid] AdvReac Rash Verified 03/24/22 14:11 Opioids - Morphine Analogues AdvReac Nausea Verified 03/24/22 14:11 Opioids-Meperidine and AdvReac Nausea Verified 03/24/22 14:11 Related [Opioids-Meperidine & Related] Opioids-Methadone and Related AdvReac Nausea Verified 03/24/22 14:11 [Opioids-Methadone & Related] Cane sugar AdvReac Rash Uncoded 03/24/22 14:11 - Social History Does the pt smoke?: No Smoking Status: Never smoker Does the pt drink ETOH?: No Does the pt have substance abuse?: No - Immunizations Immunizations are current?: Yes - POLST Patient has POLST: No PD ED PE NORMAL - Vitals Vital signs reviewed: Yes - General General: Alert and oriented X 3, No acute distress - HEENT HEENT: PERRL, EOMI - Neck Neck: Supple, no meningeal sign, No bony TTP - Cardiac Cardiac: RRR, No murmur - Respiratory Respiratory: No respiratory distress, Clear bilaterally - Abdomen Abdomen: Normal bowel sounds, Soft, Non tender - Back Back: No CVA TTP, No spinal TTP - Derm Derm: Normal color, Warm and dry - Extremities Extremities: No edema, No calf tenderness / cord - Neuro Neuro: Alert and oriented X 3, Normal speech - Psych Psych: Normal mood, Normal affect Results - Vitals Vitals: Vital Signs - 24 hr 03/24/22 03/24/22 03/24/22 14:02 17:35 17:57 Heart Rate 102 H 98 85 Respiratory 14 12 17 Rate Blood Pressure 170/63 H 166/62 H 165/82 H O2 Saturation 98 99 98 Oxygen O2 Source Room air - EKG (time done) 1411 Rate: Rate (enter#) (102) Rhythm: Sinus tachycardia [place]: Normal Intervals: Normal [place] QRS: Normal Ischemia: Normal ST segments - Labs Labs: Laboratory Tests 03/24/22 03/24/22 03/24/22 15:17 15:17 15:17 WBC 6.0 RBC 4.33 Hgb 13.5 Hct 40.5 MCV 93.5 MCH 31.2 H MCHC 33.3 RDW 13.1 Plt Count 215 MPV 9.7 Neut # (Auto) 3.7 Lymph # (Auto) 1.6 [place] # (Auto) 0.5 Eos # (Auto) 0.1 Baso # (Auto) 0.1 Absolute Nucleated RBC 0.00 Nucleated RBC % 0.0 Sodium 137 Potassium 3.7 Chloride 101 Carbon Dioxide 26 Anion Gap 10.0 BUN 16 Creatinine 0.6 Estimated GFR (MDRD) 97 Glucose 130 H Calcium 9.9 Total Bilirubin 0.7 AST 26 ALT 24 Alkaline Phosphatase 62 Troponin I High Sens 2.7 Total Protein 6.9 Albumin 4.2 Globulin 2.7 Albumin/Globulin Ratio 1.6 Lipase 36 - Rads (name of study) 1v chest Radiology: EMP read contemporaneously (neg) PD MEDICAL DECISION MAKING - ED course ED course: 76-year-old woman with symptoms and signs very consistent with reflux/gastritis. Benign exam and cardiac work-up was negative. We discussed that PPIs are first-line treatment for this issue but she did not tolerate omeprazole and would like to avoid The PPI class as a whole. As such we settled on trialing some famotidine but she would only like to take it as a half dose given that she does not process medications well. Departure - Departure Disposition: Home, Self Care Clinical Impression: Gastritis Qualifiers: Gastritis type: unspecified gastritis Chronicity: acute Gastritis bleeding: without bleeding Qualified Code(s): K29.00 - Acute gastritis without bleeding Condition: Good Record reviewed to determine appropriate education?: Yes Instructions: ED PUD Vs Gastritis Comments: Talk with your doctor about referral for upper endoscopy especially if symptoms are persistent. Return for new or worsening symptoms. You can buy famotidine [id number], the usual dose is 20 mg twice a day, but I think it is okay, as discussed, to start at 20 mg once a day. If you tolerate it well you can do uble up. Discharge Date/Time: 03/24/22 18:08
[2022-03-24 17:59] VITALS: BP 165/82
== END 2022-03-24 18:08 | disposition home or self-care (01) ==
LOC: ED 13:53
DX: K29.00 Acute gastritis without bleeding (principal)
CPT/HCPCS: 36415; 71045; 80053; 83690; 84484; 85025; 93005; 99284; A9270

== ENCOUNTER 2022-08-06 08:04 | Outpatient (CLI) | payer MEDICARE, OTHER ==
[2022-08-06 15:34] LABS: BILIRUBIN,URINE NEGATIVE (NEGATIVE); GLUCOSE, URINE (UA) NEGATIVE (NEGATIVE); KETONES,URINE (UA) NEGATIVE (NEGATIVE); LEUKOCYTE ESTERASE, URINE NEGATIVE (NEGATIVE); NITRITE,URINE NEGATIVE (NEGATIVE); OCCULT BLOOD,URINE NEGATIVE (NEGATIVE); PROTEIN,URINE NEGATIVE (NEGATIVE); UROBILINOGEN,URINE 0.2 (NORMAL) E.U./dL (NORMAL)
[2022-08-06 15:36] LABS: CLARITY,URINE CLEAR (CLEAR)
[2022-08-06 16:56] LABS: BACTERIA,URINE None Seen /HPF (None Seen); RBC,URINE None Seen /HPF (0-5); SQUAMOUS EPITHELIAL CELL,UR FEW Squamous (<= Few); WBC,URINE 0-3 /HPF (0-5)
== END 2022-08-06 08:05 | disposition home or self-care (01) ==
LOC: LAB.S 08:04
PROVIDERS: ATTEND Internal Medicine
DX: N30.00 Acute cystitis without hematuria (principal)
CPT/HCPCS: 81001; 87086